=== PATIENT | female | born 1950 | race American Indian/Alaskan Native ===

== ENCOUNTER 2017-01-20 11:13 | Emergency (ER) | payer MEDICARE, OTHER ==
[2017-01-20 12:17] VITALS: BP 137/84
--- NOTE | 2017-01-20 14:03 | EDM.PDOC ---
ED HPI NEURO - General Chief Complaint: Neuro Symptoms/Deficits Stated Complaint: [id number] DIZZY WEAK Time Seen by Provider: 01/20/17 13:50 - History of Present Illness INITIAL COMMENTS - FREE TEXT/NARRATIVE: She has had dizziness which is best described as room spinning and her concern was that for a stroke. In the past she had some transient speech problems which resolved without residual. Timing/Duration: Reports: Hour(s): (today) Location (Neuro Complaint): Reports: generalized Quality (Neuro Complaint): Reports: other (dizziness) Severity: mild Improves with: Reports: Other (rest) Worsens with: Reports: Movement - Related Data Allergies/ADRs: Allergies Allergy/AdvReac Type Severity Reaction Status Date / Time No Known Allergies Allergy Verified 12/31/13 21:58 Home Meds: Home Meds . [No Known Home Meds] 12/31/13 [History] Past Medical History - Past Health History Medical/Surgical History: Denies Medical/Surgical History HEENT History: Reports: Impaired vision Social & Family History - Tobacco Use Smoking Status *Q: Current Every Day Smoker Years of Tobacco use: 40 Packs/Tins Daily: 0.5 Used Tobacco, but Quit: No Second Hand Smoke Exposure: Yes - Caffeine Use Caffeine Use: Reports: Coffee, Soda, Tea - Alcohol Use Days Per Week of Alcohol Use: 0 - Recreational Drug Use Recreational Drug Use: No ED ROS GENERAL - Review of Systems Review Of Systems: See Below Constitutional: Reports: no symptoms HEENT: Reports: No symptoms Respiratory: Reports: No Symptoms Cardiovascular: Reports: No symptoms GI/Abdominal: Reports: No symptoms Skin: Reports: no symptoms Neurological: Reports: Headache. Denies: Numbness, Paresthesia, Pre-Existing Deficit, Trouble Speaking, Weakness (Mild frontal headache which started today with the vertigo), Change in Speech Psychiatric: Reports: No symptoms Hematologic/Lymphatic: Reports: no symptoms ED EXAM, NEURO - Physical Exam Exam: See Below Exam Limited By: No limitations General Appearance: alert, WD/WN, no apparent distress Eye Exam: bilateral eye: normal inspection, PERRL (mild lateral nystagmus at rest and worsened with movement) Ears: normal external exam Nose: normal inspection Throat/Mouth: Normal inspection, Normal lips, Normal teeth, Normal gums, Normal oropharynx, Normal voice, No airway compromise Head Exam: atraumatic Neck: normal inspection, supple, non-tender, full range of motion Respiratory/Chest: no respiratory distress, lungs clear, normal breath sounds, no accessory muscle use, chest non-tender Cardiovascular: normal peripheral pulses, regular rate, rhythm, no edema, no gallop, no JVD, no murmur, no rub GI/Abdominal: soft Neurological: alert, normal mood/affect, CN II-XII intact, normal gait, normal reflexes, no motor/sensory deficits, oriented x 3, other (fine lateral nystagmus which is worsened with movement which is worsened with movement and improved with rest. normal finger nose. Rhomberg negative.). No: ataxia, difficulty walking DTR: 2+: bicep (R), bicep (L), tricep (R), tricep (L), patella (R), patella (L) , achilles (R), achilles (L) Back Exam: normal inspection Extremities: normal inspection, normal range of motion, non-tender, no pedal edema, normal capillary refill Psychiatric: normal affect, normal mood Skin Exam: Warm, Dry, Intact, Normal color, No rash Course - Vital Signs Last Recorded V/S: Last Vital Signs Temp 98 F 01/20/17 12:15 Pulse 62 01/20/17 12:15 Resp 16 01/20/17 12:15 BP 137/84 01/20/17 12:15 Pulse Ox 96 01/20/17 12:15 Departure - Departure Time of Disposition: 14:34 Disposition: Home, Self-Care 01 Condition: good Clinical Impression: Vertigo Instructions: Benign Positional Vertigo, Vertigo, [id number] Forms: ED Department Discharge
== END 2017-01-20 14:15 | disposition home or self-care (01) ==
LOC: DL.ED 11:13
DX: R42 Dizziness and giddiness (principal); F17.210 Nicotine dependence, cigarettes, uncomplicated
CPT/HCPCS: 99282; 99283

== ENCOUNTER 2018-02-08 17:39 | Emergency (ER) | payer MEDICARE, OTHER ==
[2018-02-08] MEDS ORDERED: Benzonatate 100 MG Cap PO ONE (17:58)
[2018-02-08] MEDS ORDERED: cefTRIAXone 1 GM, Lidocaine 1% 2.1 ML IM ONE ×2 (17:58)
--- NOTE | 2018-02-08 18:05 | EDM.PDOC ---
ED HPI GENERAL MEDICAL PROBLEM - General Chief Complaint: Abdominal Pain Stated Complaint: COLD [id number] Time Seen by Provider: 02/08/18 17:45 Source of Information: Reports: Patient History Limitations: Reports: No Limitations - History of Present Illness INITIAL COMMENTS - FREE TEXT/NARRATIVE: This 67 yo female patient reports to the ED due to a cough for the past 10 days. The patient reports she took 1 dose of Robitussin and 1 dose of "throat spray" today. The patient has not been seen in the clinic for these symptoms. Duration: Day(s): (10), Constant Location: Reports: Chest Quality: Reports: Ache, Dull Severity: Moderate Improves with: Reports: None Worsens with: Reports: None Context: Reports: Other Associated Symptoms: Reports: Cough - Related Data Allergies Allergy/AdvReac Type Severity Reaction Status Date / Time No Known Allergies Allergy Verified 12/31/13 21:58 Home Meds: Home Meds . [No Known Home Meds] 12/31/13 [History] Past Medical History - Past Health History Medical/Surgical History: Denies Medical/Surgical History HEENT History: Reports: Impaired Vision Social & Family History - Caffeine Use Caffeine Use: Reports: Coffee, Soda, Tea ED ROS GENERAL - Review of Systems Review Of Systems: ROS reveals no pertinent complaints other than HPI. ED EXAM, GENERAL - Physical Exam Exam: See Below Exam Limited By: No Limitations General Appearance: Alert, WD/WN, Mild Distress Eye Exam: Bilateral Eye: EOMI, Normal Inspection, PERRL Ears: Normal External Exam, Normal Canal, Hearing Grossly Normal, Normal TMs Nose: Normal Inspection, Normal Mucosa, No Blood Head: Atraumatic, Normocephalic Neck: Normal Inspection, Supple, Non-Tender, Full Range of Motion Respiratory/Chest: No Accessory Muscle Use, Chest Non-Tender, Rhonchi (right upper lung ) Cardiovascular: Normal Peripheral Pulses, Regular Rate, Rhythm, No Edema, No Gallop, No JVD, No Murmur, No Rub GI/Abdominal: Normal Bowel Sounds, Soft, Non-Tender, No Organomegaly, No Distention, No Abnormal Bruit, No Mass (Female) Exam: Deferred Rectal (Female) Exam: Deferred Back Exam: Normal Inspection, Full Range of Motion, NT Extremities: Normal Inspection, Normal Range of Motion, Non-Tender, Normal Capillary Refill, No Pedal Edema Neurological: Alert, Oriented, CN II-XII Intact, Normal Cognition, Normal Gait, Normal Reflexes, No Motor/Sensory Deficits Psychiatric: Normal Affect, Normal Mood Skin Exam: Warm, Dry, Intact, Normal Color, No Rash Lymphatic: No Adenopathy Course - Orders/Labs/Meds Meds: Medications Discontinued Medications Generic Name Dose Route Start Last Admin Trade Name Cornelia PRN Reason Stop Dose Admin Benzonatate 200 mg 02/08/18 17:58 Tessalon Perles PO 02/08/18 17:59 ONETIME ONE Ceftriaxone Sodium 1 gm/ 0 gm 02/08/18 17:58 Lidocaine HCl 2.1 ml IM 02/08/18 17:59 ONETIME ONE Departure - Departure Time of Disposition: 18:01 Disposition: Home, Self-Care 01 Condition: Fair Clinical Impression: Bronchitis - Discharge Information Instructions: Acute Bronchitis, Adult Forms: ED Department Discharge Care Plan Goals: The patient was advised of the examination results during the visit. The patient was given an injection of Rocephin and a dose of Tessalon Pearles while in the ED. The patient was discharged with a script for Azithromycin (250 mg) # 6 to take 2 by mouth on day 1 and 1 by mouth on days 2-5 and Tessalon Pearles ( 200 mg) #21 to take 1 by mouth 3 times per day. If the patient has any additional symptoms or concerns, the patient should follow-up with her primary care facility or return to the emergency department.
[2018-02-08 18:12] VITALS: BP 135/75
== END 2018-02-08 18:33 | disposition home or self-care (01) ==
LOC: DL.ED 17:39
DX: J40 Bronchitis, not specified as acute or chronic (principal)
CPT/HCPCS: 96372; 99282; A9270; J0696; 99283

== ENCOUNTER 2019-01-01 15:12 | Emergency (ER) | payer MEDICARE, OTHER ==
--- NOTE | 2019-01-01 16:06 | EDM.PDOC ---
ED HPI GENERAL MEDICAL PROBLEM - General Chief Complaint: General Stated Complaint: DIZZYNESS,NAUSEA [id number] Time Seen by Provider: 01/01/19 15:35 Source of Information: Reports: Patient History Limitations: Reports: No Limitations - History of Present Illness INITIAL COMMENTS - FREE TEXT/NARRATIVE: Patient comes emergency department today with complaints of dizziness. Just prior to arrival she suddenly developed a sensation that every time she moved her head the room starts to spin. Every time that she bends over or changes position the room starts to spin and she is reportedly dizzy. She has no headache. She had some nausea. No recent falls or trauma. No neck pain. No fever or chills. No paresthesias of her upper or lower extremities. No change in the functionality of her upper or lower extremities. No change in her visual acuity. No weakness dizziness lightheadedness. No syncope. No chest pain or shortness of breath or difficulty breathing. She has had this many times before ever since she had a surgery on her right ear. She has had Don maneuver in the past with resolution of her symptoms. Headache Pain Score (Numeric/FACES): 5 - Related Data Allergies Allergy/AdvReac Type Severity Reaction Status Date / Time No Known Allergies Allergy Verified 01/01/19 15:17 Home Meds: Home Meds Aspirin 325 mg PO DAILY 01/01/19 [History] Past Medical History - Past Health History Medical/Surgical History: Denies Medical/Surgical History HEENT History: Reports: Impaired Vision Neurological History: Reports: Vertigo - Past Surgical History HEENT Surgical History: Reports: Other (See Below) Other HEENT Surgeries/Procedures: ear surgery to open ear drum on right side. Social & Family History - Family History Family Medical History: Noncontributory - Tobacco Use Smoking Status *Q: Current Every Day Smoker Years of Tobacco use: 50 Packs/Tins Daily: 0.5 - Caffeine Use Caffeine Use: Reports: Coffee, Soda - Recreational Drug Use Recreational Drug Use: No - Living Situation & Occupation Living situation: Reports: with Family Occupation: Retired ED ROS GENERAL - Review of Systems Review Of Systems: ROS reveals no pertinent complaints other than HPI. ED EXAM, GENERAL - Physical Exam Exam: See Below Exam Limited By: No Limitations General Appearance: Alert, WD/WN, No Apparent Distress Eye Exam: Bilateral Eye: EOMI, Normal Inspection, PERRL Ears: Normal External Exam, Normal Canal, Hearing Grossly Normal, Normal TMs ( Other than some chronic scarring of the right TM.) Nose: Normal Inspection, No Blood, Nasal Swelling Throat/Mouth: Normal Inspection, Normal Lips, Normal Teeth, Normal Gums, Normal Oropharynx, Normal Voice, No Airway Compromise Head: Atraumatic, Normocephalic Neck: Normal Inspection, Supple, Non-Tender Respiratory/Chest: No Respiratory Distress, Lungs Clear, Normal Breath Sounds, No Accessory Muscle Use, Chest Non-Tender Cardiovascular: Normal Peripheral Pulses, Regular Rate, Rhythm Peripheral Pulses: 2+: Radial (L), Radial (R), Posterior Tibial (L), Posterior Tibial (R), Dorsalis Pedis (L), Dorsalis Pedis (R) GI/Abdominal: Normal Bowel Sounds, Soft, Non-Tender Back Exam: Normal Inspection, Full Range of Motion, Decreased Range of Motion. No: CVA Tenderness (L), CVA Tenderness (R), Paraspinal Tenderness, Vertebral Tenderness Extremities: Normal Inspection, Normal Range of Motion, Normal Capillary Refill Neurological: Alert, Oriented, CN II-XII Intact, Normal Cognition, Normal Gait, Normal Reflexes, No Motor/Sensory Deficits, Other (She does have a couple of extra beats of nystagmus in the very lateral aspects of the visual gaze. A Westover- Hallpike maneuver was completed on the left than the right and found to be positive on the right with rotary nystagmus in the return of the patient's symptoms.) Psychiatric: Normal Affect, Normal Mood Skin Exam: Warm, Dry, Intact, Normal Color, No Rash Lymphatic: No Adenopathy Course - Vital Signs Last Recorded V/S: Last Vital Signs Temp 36.7 C 01/01/19 15:19 Pulse 72 01/01/19 15:19 Resp 20 01/01/19 15:19 BP 171/80 H 01/01/19 15:19 Pulse Ox 98 01/01/19 15:19 - Re-Assessments/Exams Free Text/Narrative Re-Assessment/Exam: 01/01/19 16:07 The Don maneuver was completed isolating the right ear. With complete resolution of the patient's symptoms. She was monitored for the next short period of time. She is ambulatory around the department and was completely asymptomatic. She feels much better and is back to normal. This is clearly BPPV isolated to the right ear. As her symptomatology has resolved completely with the Don maneuver I do not feel that any further testing is warranted as this is a clear-cut case that resolved with the maneuver. I would like her to see physical therapy in the next 48 hours to repeat the procedure and gave her instructions on how to care for herself tonight. She is comfortable with this plan and her questions are answered. Departure - Departure Time of Disposition: 16:01 Disposition: Home, Self-Care 01 Clinical Impression: BPPV (benign paroxysmal positional vertigo) Qualifiers: Laterality: right Qualified Code(s): H81.11 - Benign paroxysmal vertigo, right ear - Discharge Information Instructions: How to Perform the Don Maneuver, Vertigo, [id number] Additional Instructions: Home rest tonight. Keep your head in neutral midline position. As discussed in the ED. Try to stay sitting up at at least 45 degrees with head in neutral position until you go to bed tonight. Lots of water over the next few days. Return to the ED if new or worsening symptoms Make an appointment with physical therapy to be seen in 48 hrs for recheck and repeat of the eply maneuver. Recheck primary care in the next 4-6 days if not improving sooner if worse. - Assessment/Plan Assessment:: BPPV right sided. Plan: Home rest tonight. Keep your head in neutral midline position. As discussed in the ED. Try to stay sitting up at at least 45 degrees with head in neutral position until you go to bed tonight. Lots of water over the next few days. Return to the ED if new or worsening symptoms Make an appointment with physical therapy to be seen in 48 hrs for recheck and repeat of the eply maneuver. Recheck primary care in the next 4-6 days if not improving sooner if worse.
[2019-01-01 16:14] VITALS: BP 154/79
== END 2019-01-01 16:08 | disposition home or self-care (01) ==
LOC: DL.ED 15:12
DX: H81.11 Benign paroxysmal vertigo, right ear (principal); F17.210 Nicotine dependence, cigarettes, uncomplicated
CPT/HCPCS: 99283

== ENCOUNTER 2020-05-16 09:37 | Emergency (ER) | payer MEDICARE ==
[2020-05-16 07:28] VITALS: BP 141/91
--- NOTE | 2020-05-16 08:20 | EDM.PDOC ---
ED HPI GENERAL MEDICAL PROBLEM - General Chief Complaint: Respiratory Problem Stated Complaint: AMBULANCE Time Seen by Provider: 05/16/20 08:10 Source of Information: Reports: Patient, EMS History Limitations: Reports: No Limitations - History of Present Illness INITIAL COMMENTS - FREE TEXT/NARRATIVE: Patient is here for shortness of breath and chest tightness. It started last n ight, a little, but really made her scared this morning. She feels like it is a little better since getting some extra oxygen in the ambulance. She denies any known heart or lung disease. She smokes about 1 ppd. No diagnosis of COPD. No known sick contacts. No fevers or chills. No nausea or vomiting. She also noted a productive cough. Onset: Gradual Onset Date: 05/15/20 Location: Reports: Chest Quality: Reports: Other (thightness) Improves with: Reports: Other (oxygen) - Related Data Allergies Allergy/AdvReac Type Severity Reaction Status Date / Time No Known Allergies Allergy Verified 05/16/20 07:35 Home Meds: Home Meds Aspirin 325 mg PO DAILY 01/01/19 [History] Past Medical History - Past Health History Medical/Surgical History: Denies Medical/Surgical History HEENT History: Reports: Impaired Vision Cardiovascular History: Reports: None Respiratory History: Reports: None Gastrointestinal History: Reports: None Genitourinary History: Reports: None Musculoskeletal History: Reports: None Neurological History: Reports: Vertigo Psychiatric History: Reports: None Endocrine/Metabolic History: Reports: None Hematologic History: Reports: None Immunologic History: Reports: None Oncologic (Cancer) History: Reports: None Dermatologic History: Reports: None - Infectious Disease History Infectious Disease History: Reports: None - Past Surgical History HEENT Surgical History: Reports: Other (See Below) Other HEENT Surgeries/Procedures: ear surgery to open ear drum on right side. Cardiovascular Surgical History: Reports: None Respiratory Surgical History: Reports: None GI Surgical History: Reports: None Musculoskeletal Surgical History: Reports: None Social & Family History - Family History Family Medical History: Noncontributory - Tobacco Use Smoking Status *Q: Current Every Day Smoker Years of Tobacco use: 40 Packs/Tins Daily: 1 - Caffeine Use Caffeine Use: Reports: Coffee - Recreational Drug Use Recreational Drug Use: No - Living Situation & Occupation Living situation: Reports: with Family Occupation: Retired ED ROS GENERAL - Review of Systems Review Of Systems: Comprehensive ROS is negative, except as noted in HPI. ED EXAM, GENERAL - Physical Exam Exam: See Below Exam Limited By: No Limitations General Appearance: Alert, WD/WN, No Apparent Distress Eye Exam: Bilateral Eye: Normal Inspection, PERRL Ears: Normal External Exam Nose: Normal Inspection, Normal Mucosa, No Blood Throat/Mouth: Normal Inspection, Normal Lips, Normal Oropharynx, Normal Voice, No Airway Compromise Head: Atraumatic, Normocephalic Neck: Normal Inspection, Supple, Non-Tender, Full Range of Motion Respiratory/Chest: No Respiratory Distress, No Accessory Muscle Use, Wheezing Cardiovascular: Normal Peripheral Pulses, Regular Rate, Rhythm, No Edema, No Murmur GI/Abdominal: Soft, Non-Tender, No Distention (Female) Exam: Deferred Rectal (Female) Exam: Deferred Back Exam: Normal Inspection Extremities: Normal Inspection, Normal Range of Motion, Normal Capillary Refill Neurological: Alert, Oriented, CN II-XII Intact, Normal Cognition, No Motor/Sensory Deficits Psychiatric: Normal Affect, Normal Mood Skin Exam: Warm, Dry, Intact, Normal Color, No Rash Lymphatic: No Adenopathy Course - Vital Signs Last Recorded V/S: Last Vital Signs Temp 97.5 F 05/16/20 07:27 Pulse 69 05/16/20 08:44 Resp 20 05/16/20 07:27 BP 141/91 H 05/16/20 07:27 Pulse Ox 94 L 05/16/20 08:44 - Orders/Labs/Meds Orders: Active Orders 24 hr Category Date Time Status EKG Documentation Completion [RC] STAT Care 05/16/20 08:08 Ordered RT Aerosol Therapy [RC] ASDIRECTED Care 05/16/20 08:09 Ordered Labs: Laboratory Tests 05/16/20 05/16/20 05/16/20 Range/Units 07:43 08:04 08:04 WBC (5.0-10.0) 10^3/uL RBC (4.2-5.4) 10^6/uL Hgb (12.0-16.0) g/dL Hct (37.0-47.0) % MCV (80-100) fL MCH (27.0-34.0) pg MCHC (33.0-35.0) g/dL Plt Count (150-450) 10^3/uL Neut % (Auto) (42.2-75.2) % Lymph % (Auto) (20.5-50.1) % Henderson % (Auto) (2-8) % Eos % (Auto) (1.0-3.0) % Baso % (Auto) (0.0-1.0) % Sodium (136-145) mmol/L Potassium (3.5-5.1) mmol/L Chloride (98-107) mmol/L Carbon Dioxide (21-32) mmol/L Anion Gap (7-13) mEq/L BUN (7-18) mg/dL Creatinine (0.55-1.02) mg/dL Est Cr Clr Drug Dosing mL/min Estimated GFR (MDRD) BUN/Creatinine Ratio (No establ ref range) Glucose (74-99) mg/dL Calcium (8.5-10.1) mg/dL Total Bilirubin (0.2-1.0) mg/dL AST (15-37) U/L ALT (14-59) U/L Alkaline Phosphatase (46-116) U/L Troponin I (0.000-0.056) ng/mL Total Protein (6.4-8.2) g/dL Albumin (3.4-5.0) g/dL Globulin Albumin/Globulin Ratio Urine Color Light yellow (YELLOW) Urine Appearance Slightly cloudy (CLEAR) Urine pH 5.0 (5.0-9.0) Ur Specific [place] 1.010 (1.005-1.030) Urine Protein Negative (NEGATIVE) Urine Glucose (UA) Negative (NEGATIVE) Urine Ketones Negative (NEGATIVE) Urine Occult Blood Moderate H (NEGATIVE) Urine Nitrite Negative (NEGATIVE) Urine Bilirubin Negative (NEGATIVE) Urine Urobilinogen 0.2 (0.2-1.0) mg/dL Ur Leukocyte Esterase Negative (NEGATIVE) Urine RBC 10-20 H /HPF Urine WBC 0-5 (0-5/HPF) /HPF Ur Epithelial Cells Few (NOT SEEN) /HPF Urine Bacteria Rare (0-FEW/HPF) /HPF Urine Mucus Rare (NOT SEEN) /LPF Urine Opiates Screen Negative (NEGATIVE) Ur Oxycodone Screen Negative (NEGATIVE) Urine Methadone Screen Negative (NEGATIVE) Ur Barbiturates Screen Negative (NEGATIVE) U Tricyclic Antidepress Negative (NEGATIVE) Ur Phencyclidine Scrn Negative (NEGATIVE) Ur Amphetamine Screen Negative (NEGATIVE) U Methamphetamines Scrn Negative (NEGATIVE) Urine MDMA Screen Negative (NEGATIVE) U Benzodiazepines Scrn Negative (NEGATIVE) Urine Cocaine Screen Negative (NEGATIVE) U Marijuana (THC) Screen Negative (NEGATIVE) COVID-19 (HEATHER) Negative (NEGATIVE) 05/16/20 05/16/20 Range/Units 08:26 08:26 WBC 6.1 (5.0-10.0) 10^3/uL RBC 4.68 (4.2-5.4) 10^6/uL Hgb 14.1 (12.0-16.0) g/dL Hct 42.9 (37.0-47.0) % MCV 91.7 (80-100) fL MCH 30.1 (27.0-34.0) pg MCHC 32.9 L (33.0-35.0) g/dL Plt Count 235 (150-450) 10^3/uL Neut % (Auto) 73.6 (42.2-75.2) % Lymph % (Auto) 15.9 L (20.5-50.1) % Henderson % (Auto) 6.2 (2-8) % Eos % (Auto) 3.6 H (1.0-3.0) % Baso % (Auto) 0.7 (0.0-1.0) % Sodium 145 (136-145) mmol/L Potassium 4.1 (3.5-5.1) mmol/L Chloride 109 H (98-107) mmol/L Carbon Dioxide 29 (21-32) mmol/L Anion Gap 11.1 (7-13) mEq/L BUN 7 (7-18) mg/dL Creatinine 0.87 (0.55-1.02) mg/dL Est Cr Clr Drug Dosing 46.91 mL/min Estimated GFR (MDRD) > 60 BUN/Creatinine Ratio 8.0 (No establ ref range) Glucose 103 H (74-99) mg/dL Calcium 9.0 (8.5-10.1) mg/dL Total Bilirubin 0.3 (0.2-1.0) mg/dL AST 11 L (15-37) U/L ALT 19 (14-59) U/L Alkaline Phosphatase 120 H (46-116) U/L Troponin I < 0.017 (0.000-0.056) ng/mL Total Protein 7.6 (6.4-8.2) g/dL Albumin 3.8 (3.4-5.0) g/dL Globulin 3.8 Albumin/Globulin Ratio 1.0 Urine Color (YELLOW) Urine Appearance (CLEAR) Urine pH (5.0-9.0) Ur Specific [place] (1.005-1.030) Urine Protein (NEGATIVE) Urine Glucose (UA) (NEGATIVE) Urine Ketones (NEGATIVE) Urine Occult Blood (NEGATIVE) Urine Nitrite (NEGATIVE) Urine Bilirubin (NEGATIVE) Urine Urobilinogen (0.2-1.0) mg/dL Ur Leukocyte Esterase (NEGATIVE) Urine RBC /HPF Urine WBC (0-5/HPF) /HPF Ur Epithelial Cells (NOT SEEN) /HPF Urine Bacteria (0-FEW/HPF) /HPF Urine Mucus (NOT SEEN) /LPF Urine Opiates Screen (NEGATIVE) Ur Oxycodone Screen (NEGATIVE) Urine Methadone Screen (NEGATIVE) Ur Barbiturates Screen (NEGATIVE) U Tricyclic Antidepress (NEGATIVE) Ur Phencyclidine Scrn (NEGATIVE) Ur Amphetamine Screen (NEGATIVE) U Methamphetamines Scrn (NEGATIVE) Urine MDMA Screen (NEGATIVE) U Benzodiazepines Scrn (NEGATIVE) Urine Cocaine Screen (NEGATIVE) U Marijuana (THC) Screen (NEGATIVE) COVID-19 (HEATHER) (NEGATIVE) Meds: Medications Discontinued Medications Generic Name Dose Route Start Last Admin Trade Name Freq PRN Reason Stop Dose Admin Albuterol/Ipratropium 3 ml 05/16/20 08:09 05/16/20 08:42 Duoneb 3.0-0.5 Mg/3 Ml NEB 05/16/20 08:10 3 ml ONETIME ONE Administration Departure - Departure Time of Disposition: 09:24 Disposition: Home, Self-Care 01 Condition: Good Clinical Impression: COPD with exacerbation - Discharge Information *PRESCRIPTION DRUG MONITORING PROGRAM REVIEWED*: Not Applicable *COPY OF PRESCRIPTION DRUG MONITORING REPORT IN PATIENT PARISH: Not Applicable Instructions: Chronic Obstructive Pulmonary Disease, [id number] Forms: ED Department Discharge Sepsis Event Note (ED) - Evaluation Sepsis Screening Result: No Definite Risk - Focused Exam Vital Signs: Vital Signs Temp Pulse Resp BP Pulse Ox Pulse Ox 05/16/20 08:44 69 94 L 05/16/20 07:27 97.5 F 74 20 141/91 H 94 L - My Orders Last 24 Hours: My Active Orders 05/16/20 08:08 EKG Documentation Completion [RC] STAT 05/16/20 08:09 RT Aerosol Therapy [RC] ASDIRECTED - Assessment/Plan Last 24 Hours: My Active Orders 05/16/20 08:08 EKG Documentation Completion [RC] STAT 05/16/20 08:09 RT Aerosol Therapy [RC] ASDIRECTED Assessment:: 69 yo female smoker with acute onset shortness of breath and chest tightness who improved with a duoneb treatment Plan: discussed probability of COPD given her smoking and current exacerbation prednisone burst for 5 days albuterol inhaler every 4-6 hours, patient was shown the proper technique fu with pcp in 3-5 days
--- NOTE | 2020-05-16 08:37 | CR ---
PROCEDURE INFORMATION: Exam: XR Chest, 1 View Exam date and time: 05/16/2020 8:21 AM Age: 69 years old Clinical indication: Chest tightness, shortness of breath TECHNIQUE: Imaging protocol: XR of the chest Views: 1 view. COMPARISON: No relevant prior studies available. FINDINGS: Lungs: No lung consolidation or pulmonary edema. Pleural space: No pleural effusion or pneumothorax. Heart/Mediastinum: The cardiac silhouette is not enlarged. The mediastinal contours are normal. Bones/joints: No acute osseous abnormality. IMPRESSION: No acute abnormality.
[2020-05-16 08:50] VITALS: PULSE 69
[2020-05-16 08:57] LABS: ANION GAP 11.1 mEq/L (7-13); CHLORIDE,CL 109 mmol/L (98-107); SODIUM,NA 145 mmol/L (136-145)
[~2020-05-16 09:37] MED LIST: Albuterol/Ipratropium 3.0-0.5 MG/3 ML Neb Soln NEB ONE
== END 2020-05-16 09:42 | disposition home or self-care (01) ==
LOC: DL.ED 09:37
DX: J44.1 Chronic obstructive pulmonary disease with (acute) exacerbation (principal); F17.210 Nicotine dependence, cigarettes, uncomplicated; Z79.82 Long term (current) use of aspirin; Z20.828 Contact with and (suspected) exposure to other viral communicable diseases
CPT/HCPCS: 36415; 71045; 80053; 80305; 81001; 84484; 85025; 93005; 94640; 99283; 99285; U0002; J7620-GY

== ENCOUNTER 2021-01-23 18:06 | Emergency (ER) | payer MEDICARE ==
--- NOTE | 2021-01-23 19:17 | EDM.PDOC ---
ED HPI GENERAL MEDICAL PROBLEM - General Chief Complaint: Skin Complaint Stated Complaint: RASH Time Seen by Provider: 01/23/21 19:00 Source of Information: Reports: Patient History Limitations: Reports: No Limitations - History of Present Illness INITIAL COMMENTS - FREE TEXT/NARRATIVE: This 70 yo female patient reports to the ED with a rash to her abdomen and upper thighs. The patient reports she started to notice symptoms on Sunday. The patient reports she has been using a pain cream over the area, but has not tried to take Benadryl. The patient reports she has not had any symptoms of a viral illness. The patient reports she did change her shampoo last week. Onset Date: 01/21/21 Duration: Constant, Getting Worse Location: Reports: Abdomen, Lower Extremity, Left, Lower Extremity, Right Quality: Reports: Ache, Dull Severity: Moderate Improves with: Reports: None Worsens with: Reports: None Context: Reports: Other Associated Symptoms: Reports: No Other Symptoms - Related Data Allergies Allergy/AdvReac Type Severity Reaction Status Date / Time No Known Allergies Allergy Verified 01/23/21 18:24 Home Meds: Home Meds Aspirin 81 mg PO DAILY 01/01/19 [History] Acetaminophen [Tylenol] 650 mg PO Q4H PRN 01/23/21 [History] Past Medical History - Past Health History Medical/Surgical History: Denies Medical/Surgical History HEENT History: Reports: Impaired Vision Other HEENT History: glasses Cardiovascular History: Reports: None Respiratory History: Reports: None Gastrointestinal History: Reports: None Genitourinary History: Reports: None 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 Cardiovascular Surgical History: Reports: None Respiratory Surgical History: Reports: None GI Surgical History: Reports: None Female Surgical History: Reports: None Endocrine Surgical History: Reports: None Musculoskeletal Surgical History: Reports: None Social & Family History - Family History Family Medical History: No Pertinent Family History - Tobacco Use Tobacco Use Status *Q: Current Every Day Tobacco User Years of Tobacco use: 30 Packs/Tins Daily: 1 - Caffeine Use Caffeine Use: Reports: Coffee, Soda - Recreational Drug Use Recreational Drug Use: No - Living Situation & Occupation Living situation: Reports: with Family Occupation: Retired ED ROS GENERAL - Review of Systems Review Of Systems: Comprehensive ROS is negative, except as noted in HPI. ED EXAM, SKIN/RASH Exam: See Below Exam Limited By: No Limitations General Appearance: Alert, WD/WN, Mild Distress Eye Exam: Bilateral Eye: EOMI, Normal Inspection, PERRL Ears: Normal External Exam, Normal Canal, Hearing Grossly Normal, Normal TMs Nose: Normal Inspection, Normal Mucosa, No Blood Throat/Mouth: Normal Inspection, Normal Lips, Normal Teeth, Normal Gums, Normal Oropharynx, Normal Voice, No Airway Compromise Head: Atraumatic, Normocephalic Neck: Normal Inspection, Supple, Non-Tender, Full Range of Motion Respiratory/Chest: No Respiratory Distress, Lungs Clear, Normal Breath Sounds, No Accessory Muscle Use, Chest Non-Tender Cardiovascular: Normal Peripheral Pulses, Regular Rate, Rhythm, No Edema, No Gallop, No JVD, No Murmur, No Rub GI/Abdominal: Normal Bowel Sounds, Soft, Non-Tender, No Organomegaly, No Distention, No Abnormal Bruit, No Mass (Female) Exam: Deferred Rectal (Female) Exam: Deferred Back Exam: Normal Inspection, Full Range of Motion, NT Extremities: Normal Range of Motion, Non-Tender, No Pedal Edema, Normal Capillary Refill Neurological: Alert, Oriented, CN II-XII Intact, Normal Cognition, Normal Gait, Normal Reflexes, No Motor/Sensory Deficits Psychiatric: Normal Affect, Normal Mood Skin: Warm, Dry, Intact, Normal Color, Excoriations, Rash (diffuse erythematous rash to her abdomen and upper thighs with excoriations) Location, Skin: Abdomen, Lower Extremity, Right, Lower Extremity, Left Characteristics: Erythematous Associated features: Warmth, Tenderness, Swelling, Induration Lymphatic: No Adenopathy Course - Vital Signs Last Recorded V/S: Last Vital Signs Temp 36.3 C 01/23/21 18: Pulse 78 01/23/21 18:17 Resp BP 158/83 H 01/23/21 18: Pulse Ox 94 L 01/23/21 18:17 Departure - Departure Time of Disposition: 19:12 Disposition: Home, Self-Care 01 Condition: Fair Clinical Impression: Contact dermatitis Qualifiers: Contact dermatitis type: unspecified Contact dermatitis trigger: unspecified trigger Qualified Code(s): L25.9 - Unspecified contact dermatitis, unspecified cause - Discharge Information *PRESCRIPTION DRUG MONITORING PROGRAM REVIEWED*: Not Applicable *COPY OF PRESCRIPTION DRUG MONITORING REPORT IN PATIENT PARISH: Not Applicable Instructions: Contact Dermatitis, [id number] Care Plan Goals: The patient was advised of the examination results during the visit. The patient was encouraged to start eliminating possible irritants one at a time (shampoo, body soap, perfumes, laundry soap, dryer sheets). While searching for a cause, the patient should use Aquaphor to the area to promote healing and avoid itching the areas. The patient should also take Benadryl (25 mg) at bedtime to reduce the bodies reaction to the irritant. If the patient has any additional symptoms or concerns, the patient should either return to the emergency department or visit her primary care facility. Sepsis Event Note (ED) - Evaluation Sepsis Screening Result: No Definite Risk - Focused Exam Vital Signs: Vital Signs Temp Pulse BP Pulse Ox 01/23/21 18:17 36.3 C 78 158/83 H 94 L
[2021-01-23 19:32] VITALS: BP 145/81; PULSE 74
== END 2021-01-23 19:32 | disposition home or self-care (01) ==
LOC: DL.ED 18:06
DX: L25.9 Unspecified contact dermatitis, unspecified cause (principal); Z79.82 Long term (current) use of aspirin; Z72.0 Tobacco use
CPT/HCPCS: 99282

== ENCOUNTER 2021-06-30 13:17 | Emergency (ER) | payer MEDICARE ==
[2021-06-30 13:40] VITALS: PULSE 76
[2021-06-30] MEDS ORDERED: Sodium Chloride 0.9% 10 ML Syringe FLUSH PRN (14:38)
--- NOTE | 2021-06-30 14:52 | EDM.PDOC ---
"<Tobi Weiss - Last Filed: 06/30/21 18:04> ED HPI GENERAL MEDICAL PROBLEM - General Chief Complaint: Back Pain or Injury Stated Complaint: IN BY AMBULANCE Time Seen by Provider: 06/30/21 14:49 - Related Data Allergies Allergy/AdvReac Type Severity Reaction Status Date / Time No Known Allergies Allergy Verified 06/30/21 13:41 Home Meds: Home Meds Aspirin 81 mg PO DAILY 01/01/19 [History] Acetaminophen [Tylenol] 650 mg PO Q4H PRN 01/23/21 [History] Course - Radiology Interpretation Free Text/Narrative:: [facility] Final Radiology Report Call: [phone] assistance Online chat: [email or web address] Name: ENOC WALL Age: 70Years F Date: 06/30/2021 SSN: -- : [id number] Study: CT ABDOMEN PELVIS WO CONT Requesting Physician: Tom Lopez Images: [phone] Addl Studies: Provided Clinical History: Low back pn, blood in urine Contrast: Without Contrast Medium: Contrast Amount: Contrast Method: Page 1 of 2 PROCEDURE INFORMATION: Exam: CT Abdomen And Pelvis Without Contrast Exam date and time: 06/30/2021 5:09 PM Age: 70 years old Clinical indication: Abdominal pain; Flank; Right; Additional info: Low back pn, blood in urine TECHNIQUE: Imaging protocol: Computed tomography of the abdomen and pelvis without contrast. Radiation optimization: All CT scans at this facility use at least one of these dose optimization techniques: automated exposure control; mA and/or kV adjustment per patient size (includes targeted exams where dose is matched to clinical indication); or iterative reconstruction. COMPARISON: No relevant prior studies available. FINDINGS: Lungs: The visualized lung bases are unremarkable. No pleural effusion. Liver: Unremarkable non-contrast appearance of the liver. Gallbladder and bile ducts: The gallbladder is normal. Pancreas: The pancreas is atrophic but otherwise unremarkable. Spleen: The spleen is unremarkable. An accessory splenule is present. Adrenal glands: The adrenal glands are normal. Kidneys and ureters: The kidneys are normal. Stomach and bowel: There is no evidence of bowel obstruction or intestinal perforation. Greater than expected stool burden; correlate for constipation. The stomach is within normal limits. Appendix: No evidence of appendicitis. Intraperitoneal space: No pneumoperitoneum. No abnormal free fluid or fluid col lection. Vasculature: Moderate aortic atherosclerosis. Ectatic infrarenal abdominal aorta measures up to 2.9 cm diameter. ENOC WALL | Final Radiology Report CONFIDENTIALITY STATEMENT This report is intended only for use by the referring physician, and only in accordance with law. If you received this in error, call [phone]. Page 2 of 2 Lymph nodes: There is no evidence of lymphadenopathy. Urinary bladder: The urinary bladder is within normal limits. Reproductive: Unremarkable as visualized. Bones/joints: No acute fracture or dislocation. Multilevel posterior disc osteophyte complexes with narrowing of the spinal canal, most pronounced at L2-L3 where the AP diameter measures 10 mm. Soft tissues: The extra-abdominal soft tissues are unremarkable. IMPRESSION: 1. No evidence of acute abnormality in the abdomen or pelvis. 2. Infrarenal abdominal aortic aneurysm measuring up to 2.9 cm diameter; follow- up imaging is recommended in 5 years. 3. Additional chronic and incidental findings as above. Thank you for allowing us to participate in the care of your patient. Dictated and Authenticated by: Blaine Bella MD 06/30/2021 5:43 PM Central Time ([place] & [place]) Departure - Departure Disposition: Home, Self-Care 01 Clinical Impression: Back pain Qualifiers: Back pain location: low back pain Chronicity: unspecified Back pain laterality: midline Sciatica presence: without sciatica Qualified Code(s): M54.50 - Low back pain, unspecified - Discharge Information Instructions: Acute Back Pain, Adult, Chronic Back Pain, [id number] Referrals: Bennett Torres [Primary Care Provider] - Forms: ED Department Discharge Additional Instructions: RX: [place] RX: Decadron Use tylenol and motrin for pain as needed for your back. Follow up with your primary care facility about your back pn and painless blood in your urine. Your bladder wall appear thickened and coupled with the blood in your urine could represent bladder cancer. Follow up with your primary care facility for further work up. If any new symptoms or concerns develop contact your primary care facility or return to the ER. <[place] C - Last Filed: 07/01/21 13:10> ED HPI GENERAL MEDICAL PROBLEM - General Source of Information: Reports: Patient History Limitations: Reports: No Limitations - History of Present Illness INITIAL COMMENTS - FREE TEXT/NARRATIVE: 70 y/o F c/o lower back radiating into her R buttocks. Pn has been going on since Sunday. No hx of trauma or osteoporosis. The pain is sharp, occurs with movement and 10/10, non radiating. No pain at rest. Reportedly had a fever earlier today. 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 Cardiovascular Surgical History: Reports: None Respiratory Surgical History: Reports: None GI Surgical History: Reports: None Female Surgical History: Reports: None Endocrine Surgical History: Reports: None Musculoskeletal Surgical History: Reports: None Social & Family History - Family History Family Medical History: No Pertinent Family History - Tobacco Use Tobacco Use Status *Q: Current Every Day Tobacco User Years of Tobacco use: 40 Packs/Tins Daily: 0.5 - Caffeine Use Caffeine Use: Reports: Coffee - Recreational Drug Use Recreational Drug Use: No - Living Situation & Occupation Living situation: Reports: with Family Occupation: Retired ED ROS GENERAL - Review of Systems Review Of Systems: Comprehensive ROS is negative, except as noted in HPI. ED EXAM,LOWER BACK PAIN/INJURY - Physical Exam Exam: See Below General Appearance: Alert Head: Atraumatic, Normocephalic Neck: Normal Inspection, Supple, Non-Tender, Full Range of Motion Respiratory/Chest: No Respiratory Distress, Lungs Clear, Normal Breath Sounds, No Accessory Muscle Use, Chest Non-Tender Cardiovascular: Normal Peripheral Pulses, Regular Rate, Rhythm, No Edema, No Gallop, No JVD, No Murmur, No Rub GI/Abdominal: Soft, Non-Tender Back Exam: Other (point tenderness L3, no radiculopathy) Course - Vital Signs Last Recorded V/S: Last Vital Signs Temp 98.9 F 06/30/21 18:59 Pulse 76 06/30/21 18:59 Resp 18 06/30/21 18:59 BP 136/72 06/30/21 18:59 Pulse Ox 97 06/30/21 18:59 - Orders/Labs/Meds Orders: Active Orders 24 hr Category Date Time Status Peripheral IV Insertion Adult [OM.PC] Routine Oth 06/30/21 14:38 Ordered Labs: Laboratory Tests 06/30/21 06/30/21 06/30/21 Range/Units 14:53 14:53 14:53 WBC 8.9 (5.0-10.0) 10^3/uL RBC 4.16 L (4.2-5.4) 10^6/uL Hgb 12.4 (12.0-16.0) g/dL Hct 38.4 (37.0-47.0) % MCV 92.3 (80-100) fL MCH 29.8 (27.0-34.0) pg MCHC 32.3 L (33.0-35.0) g/dL Plt Count 221 (150-450) 10^3/uL Neut % (Auto) 81.6 H (42.2-75.2) % Lymph % (Auto) 10.4 L (20.5-50.1) % [place] % (Auto) 7.6 (2-8) % Eos % (Auto) 0.2 L (1.0-3.0) % Baso % (Auto) 0.2 (0.0-1.0) % ESR (0-20) mm/hr Sodium 142 (136-145) mmol/L Potassium 3.8 (3.5-5.1) mmol/L Chloride 107 (98-107) mmol/L Carbon Dioxide 26 (21-32) mmol/L Anion Gap 12.8 (7-13) mEq/L BUN 12 (7-18) mg/dL Creatinine 0.74 (0.55-1.02) mg/dL Est Cr Clr Drug Dosing 54.35 mL/min Estimated GFR (MDRD) > 60 BUN/Creatinine Ratio 16.2 (No establ ref range) Glucose 96 (70-99) mg/dL Lactic Acid 0.6 (0.4-2.0) mmol/L Calcium 8.8 (8.5-10.1) mg/dL Magnesium 2.3 (1.8-2.4) mg/dL Total Bilirubin 0.5 (0.2-1.0) mg/dL AST 9 L (15-37) U/L ALT 16 (14-59) U/L Alkaline Phosphatase 109 (46-116) U/L C-Reactive Protein 3.6 H (0.0-0.9) mg/dL Total Protein 7.2 (6.4-8.2) g/dL Albumin 3.5 (3.4-5.0) g/dL Globulin 3.7 Albumin/Globulin Ratio 0.9 Urine Color (YELLOW) Urine Appearance (CLEAR) Urine pH (5.0-9.0) Ur Specific [place] (1.005-1.030) Urine Protein (NEGATIVE) Urine Glucose (UA) (NEGATIVE) Urine Ketones (NEGATIVE) Urine Occult Blood (NEGATIVE) Urine Nitrite (NEGATIVE) Urine Bilirubin (NEGATIVE) Urine Urobilinogen (0.2-1.0) mg/dL Ur Leukocyte Esterase (NEGATIVE) Urine RBC (0-5) /HPF Urine WBC (0-5/HPF) /HPF Ur Epithelial Cells (NOT SEEN) /HPF Urine Bacteria (0-FEW/HPF) /HPF Influenza Type A RNA (NEGATIVE) RSV RNA (INAAT) (NEGATIVE) Influenza Type B RNA (NEGATIVE) SARS-CoV-2 RNA (HEATHER) (NEGATIVE) 06/30/21 06/30/21 06/30/21 Range/Units 14:53 15:15 16:12 WBC (5.0-10.0) 10^3/uL RBC (4.2-5.4) 10^6/uL Hgb (12.0-16.0) g/dL Hct (37.0-47.0) % MCV (80-100) fL MCH (27.0-34.0) pg MCHC (33.0-35.0) g/dL Plt Count (150-450) 10^3/uL Neut % (Auto) (42.2-75.2) % Lymph % (Auto) (20.5-50.1) % [place] % (Auto) (2-8) % Eos % (Auto) (1.0-3.0) % Baso % (Auto) (0.0-1.0) % ESR 20 (0-20) mm/hr Sodium (136-145) mmol/L Potassium (3.5-5.1) mmol/L Chloride (98-107) mmol/L Carbon Dioxide (21-32) mmol/L Anion Gap (7-13) mEq/L BUN (7-18) mg/dL Creatinine (0.55-1.02) mg/dL Est Cr Clr Drug Dosing mL/min Estimated GFR (MDRD) BUN/Creatinine Ratio (No establ ref range) Glucose (70-99) mg/dL Lactic Acid (0.4-2.0) mmol/L Calcium (8.5-10.1) mg/dL Magnesium (1.8-2.4) mg/dL Total Bilirubin (0.2-1.0) mg/dL AST (15-37) U/L ALT (14-59) U/L Alkaline Phosphatase (46-116) U/L C-Reactive Protein (0.0-0.9) mg/dL Total Protein (6.4-8.2) g/dL Albumin (3.4-5.0) g/dL Globulin Albumin/Globulin Ratio Urine Color Yellow (YELLOW) Urine Appearance Clear (CLEAR) Urine pH 5.5 (5.0-9.0) Ur Specific [place] 1.010 (1.005-1.030) Urine Protein Negative (NEGATIVE) Urine Glucose (UA) Negative (NEGATIVE) Urine Ketones Negative (NEGATIVE) Urine Occult Blood Moderate H (NEGATIVE) Urine Nitrite Negative (NEGATIVE) Urine Bilirubin Negative (NEGATIVE) Urine Urobilinogen 0.2 (0.2-1.0) mg/dL Ur Leukocyte Esterase Negative (NEGATIVE) Urine RBC 5-10 H (0-5) /HPF Urine WBC 0-5 (0-5/HPF) /HPF Ur Epithelial Cells Few (NOT SEEN) /HPF Urine Bacteria Few (0-FEW/HPF) /HPF Influenza Type A RNA Negative (NEGATIVE) RSV RNA (INAAT) Negative (NEGATIVE) Influenza Type B RNA Negative (NEGATIVE) SARS-CoV-2 RNA (HEATHER) Negative (NEGATIVE) Meds: Medications Discontinued Medications Generic Name Dose Route Start Last Admin Trade Name Cornelia PRN Reason Stop Dose Admin Methylprednisolone Sodium Succinate 125 mg 06/30/21 18:28 06/30/21 19:05 Methylprednisolone Sodium Succinate 125 Mg/2 Ml Sdv IVPUSH 06/30/21 18:29 125 mg ONETIME ONE Administration Sodium Chloride 10 ml 06/30/21 14:38 06/30/21 17:11 Sodium Chloride 0.9% 10 Ml Syringe FLUSH 10 ml ASDIRECTED PRN Administration Keep Vein Open - Re-Assessments/Exams Free Text/Narrative Re-Assessment/Exam: 06/30/21 18:21 I discussed pts labd, exam, covid test and imaging with her. I will have her follow up with her CP to discuss follow up on her AAA . The bladder wall appears grossly thickened on the CT although no comment was made by the reading radiologist. I will have the pt follow up with her PCP about the painless hematuria and bladder wall thickening as it may represent cancer of the bladder. Departure - Departure Time of Disposition: 18:24 Condition: Good - Discharge Information *PRESCRIPTION DRUG MONITORING PROGRAM REVIEWED*: Not Applicable *COPY OF PRESCRIPTION DRUG MONITORING REPORT IN PATIENT PARISH: Not Applicable Sepsis Event Note (ED) - Evaluation Sepsis Screening Result: No Definite Risk - My Orders Last 24 Hours: My Active Orders 06/30/21 14:38 Peripheral IV Insertion Adult [OM.PC] Routine - Assessment/Plan Last 24 Hours: My Active Orders 06/30/21 14:38 Peripheral IV Insertion Adult [OM.PC] Routine"
[2021-06-30 15:35] LABS: ANION GAP 12.8 mEq/L (7-13); CHLORIDE,CL 107 mmol/L (98-107); SODIUM,NA 142 mmol/L (136-145)
[2021-06-30 16:01] LABS: CORONAVIRUS COVID-19 NAA NEGATIVE (NEGATIVE); RESPIRATORY SYNCYTIAL VIR NAA NEGATIVE (NEGATIVE)
--- NOTE | 2021-06-30 17:43 | CT ---
PROCEDURE INFORMATION: Exam: CT Abdomen And Pelvis Without Contrast Exam date and time: 06/30/2021 5:09 PM Age: 70 years old Clinical indication: Abdominal pain; Flank; Right; Additional info: Low back pn, blood in urine TECHNIQUE: Imaging protocol: Computed tomography of the abdomen and pelvis without contrast. Radiation optimization: All CT scans at this facility use at least one of these dose optimization techniques: automated exposure control; mA and/or kV adjustment per patient size (includes targeted exams where dose is matched to clinical indication); or iterative reconstruction. COMPARISON: No relevant prior studies available. FINDINGS: Lungs: The visualized lung bases are unremarkable. No pleural effusion. Liver: Unremarkable non-contrast appearance of the liver. Gallbladder and bile ducts: The gallbladder is normal. Pancreas: The pancreas is atrophic but otherwise unremarkable. Spleen: The spleen is unremarkable. An accessory splenule is present. Adrenal glands: The adrenal glands are normal. Kidneys and ureters: The kidneys are normal. Stomach and bowel: There is no evidence of bowel obstruction or intestinal perforation. Greater than expected stool burden; correlate for constipation. The stomach is within normal limits. Appendix: No evidence of appendicitis. Intraperitoneal space: No pneumoperitoneum. No abnormal free fluid or fluid collection. Vasculature: Moderate aortic atherosclerosis. Ectatic infrarenal abdominal aorta measures up to 2.9 cm diameter. Lymph nodes: There is no evidence of lymphadenopathy. Urinary bladder: The urinary bladder is within normal limits. Reproductive: Unremarkable as visualized. Bones/joints: No acute fracture or dislocation. Multilevel posterior disc osteophyte complexes with narrowing of the spinal canal, most pronounced at L2-L3 where the AP diameter measures 10 mm. Soft tissues: The extra-abdominal soft tissues are unremarkable. IMPRESSION: 1. No evidence of acute abnormality in the abdomen or pelvis. 2. Infrarenal abdominal aortic aneurysm measuring up to 2.9 cm diameter; follow-up imaging is recommended in 5 years. 3. Additional chronic and incidental findings as above.
[2021-06-30] MEDS ORDERED: methylPREDNISolone Sodium Succinate 125 MG/2 ML SDV IVPUSH ONE (18:28)
[2021-06-30 19:05] VITALS: BP 136/72
== END 2021-06-30 19:25 | disposition home or self-care (01) ==
LOC: DL.ED 13:17
DX: M54.50 Low back pain, unspecified (principal); Z79.82 Long term (current) use of aspirin; Z72.0 Tobacco use; Z20.822 Contact with and (suspected) exposure to COVID-19
CPT/HCPCS: 0241U; 36415; 74176; 80053; 81001; 83605; 83735; 85025; 85651; 86140; 96374; 99284; J2930

== ENCOUNTER 2022-05-29 16:11 | Emergency (ER) | payer MEDICARE ==
[2022-05-29 16:35] VITALS: BP 168/81; PULSE 74
[2022-05-29] MEDS ORDERED: Bacitracin Oint 1 GM U/D Packet TOP ONE (16:45)
[2022-05-29] MEDS ORDERED: Sodium Chloride 0.9% 10 ML Syringe FLUSH PRN (16:45)
[2022-05-29] MEDS ORDERED: diphenhydrAMINE 50 MG/ML SDV IVPUSH ONE (16:46)
[2022-05-29] MEDS ORDERED: Sodium Chloride 0.9% 1,000 ML IV SCH (17:00)
[2022-05-29 17:45] LABS: ANION GAP 9.6 mEq/L (7-13)
== END 2022-05-29 19:05 | disposition home or self-care (01) ==
LOC: DL.ED 16:11
DX: L03.114 Cellulitis of left upper limb (principal); L30.9 Dermatitis, unspecified; Z79.82 Long term (current) use of aspirin
CPT/HCPCS: 36415; 80048; 83605; 85025; 86140; 87040; 87070; 87077; 87186; 96365; 96366; 96375; 99283; J1200; J3370; J7030; J7050

== ENCOUNTER 2023-10-16 20:59 | Emergency (ER) | payer MEDICARE ==
[2023-10-16] MEDS ORDERED: Meclizine 12.5 MG Tab PO ONE ×2 (21:19→22:02)
[2023-10-16] MEDS ORDERED: Sodium Chloride 0.9% 1,000 ML IV ONE (21:19)
[2023-10-16 21:20] VITALS: BP 156/72; PULSE 67
[2023-10-16] MEDS ORDERED: Take Home: Ondansetron 4 MG Tab.DIS, 5 Tab Pack PO ONE (22:02)
== END 2023-10-16 23:00 | disposition home or self-care (01) ==
LOC: DL.ED 20:59
DX: R42 Dizziness and giddiness (principal); R11.2 Nausea with vomiting, unspecified; Z79.82 Long term (current) use of aspirin; Z79.899 Other long term (current) drug therapy
CPT/HCPCS: 82947; 96360; 99283; 99284; A9270; J7030; Q0162

== ENCOUNTER 2024-03-12 18:27 | Emergency (ER) | payer MEDICARE ==
[2024-03-12 19:42] LABS: APPEARANCE,URINE CLEAR (CLEAR); BILIRUBIN,URINE NEGATIVE (NEGATIVE); COLOR,URINE YELLOW (YELLOW); GLUCOSE,URINE NEGATIVE (NEGATIVE); KETONES,URINE 40 (NEGATIVE); LEUKOCYTE ESTERASE,URINE TRACE (NEGATIVE); NITRITE,URINE NEGATIVE (NEGATIVE); OCCULT BLOOD,URINE MODERATE (NEGATIVE); PH,URINE 5.5 (5.0-9.0); PROTEIN,URINE NEGATIVE (NEGATIVE)
[2024-03-12 19:59] LABS: BACTERIA,URINE FEW /HPF (0-FEW/HPF); EPITHELIAL CELLS,URINE FEW /HPF (NOT SEEN); WBC,URINE 0-5 /HPF (0-5/HPF)
[2024-03-12] MEDS: Sodium Chloride 0.9% 10 ML Syringe FLUSH PRN (20:30)
[2024-03-12 20:31] LABS: BASOPHILS PERCENT AUTO 0.3 % (0.0-1.0); EOSINOPHILS PERCENT AUTO 0.3 % (1.0-3.0); LYMPHOCYTES PERCENT AUTO 11.2 % (20.5-50.1); MONOCYTES PERCENT AUTO 6.4 % (2-8); NEUTROPHILS PERCENT AUTO 81.8 % (42.2-75.2); WHITE BLOOD CELL COUNT,WBC 10.1 10^3/uL (5.0-10.0)
[2024-03-12 20:53] LABS: A/G RATIO 0.8; ALBUMIN 3.7 g/dL (3.4-5.0); ANION GAP 15.2 mEq/L (7-13); BILIRUBIN TOTAL 0.9 mg/dL (0.2-1.0); BUN/CREATININE RATIO 14.6 (No establ ref range); CALCIUM 9.7 mg/dL (8.5-10.1); CREATININE 0.82 mg/dL (0.55-1.02); EST CRCL DRUG DOSING (CG) 46.88 mL/min; MAGNESIUM 2.2 mg/dL (1.8-2.4); POTASSIUM,K 4.2 mmol/L (3.5-5.1); PROTEIN TOTAL,TP 8.1 g/dL (6.4-8.2)
[2024-03-12] MEDS: Iopamidol 612 MG/ML 100 ML Bottle IVPUSH ONE (21:36)
[2024-03-12 22:44] VITALS: BP 126/80; PULSE 86
[2024-03-12] MEDS: Ketorolac 30 MG/ML SDV IVPUSH ONE (23:07)
[2024-03-13 12:56] LABS: MEAN CORPUSCULAR HEMOGLOBIN 29.9 pg (27.0-34.0); MEAN CORPUSCULAR HGB CONC 32.9 g/dL (33.0-35.0); MEAN CORPUSCULAR VOLUME 90.8 fL (80-100); RED BLOOD CELL COUNT 4.35 10^6/uL (4.2-5.4)
[2024-03-13 13:09] LABS: HEMATOCRIT 39.5 % (37.0-47.0); PLATELET COUNT,PLT 302 10^3/uL (150-450)
== END 2024-03-12 23:23 | disposition home or self-care (01) ==
LOC: DL.ED 18:27
DX: R10.9 Unspecified abdominal pain (principal); F17.210 Nicotine dependence, cigarettes, uncomplicated; Z79.82 Long term (current) use of aspirin; Z79.899 Other long term (current) drug therapy
CPT/HCPCS: 36415; 74177; 80053; 81001; 83735; 85025; 96374; 99283; 99284; J1885; Q9967; J3490